=== PATIENT | male | born 1975 | race Caucasian/White ===

== ENCOUNTER 2022-07-31 13:59 | Outpatient (CLI) | payer OTHER ==
--- NOTE | 2022-07-31 16:29 | MRI Report ---
PROCEDURE: LUMBAR SPINE WO INDICATIONS: LOW BACK PAIN TECHNIQUE: Noncontrast sagittal T1 spin echo and T2 fast echo, sagittal STIR, axial T1 and T2 fast spin echo thr ough the lumbar spine. In cases with scoliosis, additional coronal T2 fast spin echo may be performe d. COMPARISON: None. FINDINGS: Image quality: Motion artifact is noted. Alignment and Curvature: There is normal bony alignment. Bone Marrow: Marrow is of normal overall signal. No acute vertebral body compression fractures. Spinal Cord: Conus medullaris terminates at the L1 level. Visualized cord demonstrates normal signa l and size. Paraspinous Soft Tissues: No paravertebral masses. T12-L1: Normal in appearance. L1-L2: Normal in appearance. L2-L3: The disc height and disc signal are well preserved. Mild disc bulge is seen, which is eccen tric to the left, with a left foraminal disc protrusion, as on series 6 image 23. There is mild facet hypertrophy. There is mild to moderate left-sided and no right-sided neuroforaminal narrowing. No si gnificant central canal narrowing is seen. L3-L4: The disc height is well-preserved. There is loss of disc signal seen. Moderate disc bulge i s seen at this level. A superimposed central disc protrusion is seen. Mild to moderate facet hypert rophy can be seen. There is moderate left-sided and no right-sided neuroforaminal narrowing. Mild ce ntral canal narrowing is seen. L4-L5: The disc height is well-preserved. There is loss of disc signal seen. Moderate disc bulge i s seen at this level. A superimposed central disc protrusion is seen. Moderate to prominent facet h ypertrophy can be seen, left worse than right. There is moderate left-sided and zhoc-sl-hmctngma righ t-sided neuroforaminal narrowing. Moderate central canal narrowing is seen, which is exacerbated by epidural lipomatosis. L5-S1: Moderate loss of disc height and signal are seen. Mild disc bulge is seen. A superimposed central disc protrusion is seen. Mild facet hypertrophy is seen. There is at least moderate left-si ded and moderate right-sided neuroforaminal narrowing. At least moderate central canal narrowing is s een, which is largely caused by epidural lipomatosis. IMPRESSION: Multiple levels of lumbar spine degenerative change are seen, which are worst at the L5- S1 level. Epidural lipomatosis noted. Reviewed by: Cy Nina MD on 07/31/2022 3:28 PM [place] Approved by: Cy Nina MD on 07/31/2022 3:28 PM [place] Station ID: [id number]
== END 2022-07-31 14:00 | disposition home or self-care (01) ==
LOC: DI 13:59
DX: M47.816 Spondylosis without myelopathy or radiculopathy, lumbar region (principal); M47.817 Spondylosis without myelopathy or radiculopathy, lumbosacral region; E88.2 Lipomatosis, not elsewhere classified

== ENCOUNTER 2023-01-29 09:36 | Outpatient (CLI) | payer OTHER ==
--- NOTE | 2023-01-29 10:25 | Sleep Patient Instructions ---
Sleep Center Visit Summary - Patient Visit Information Reason for Visit: Initial consultation - Patient Instructions Additional Instructions: You will continue with CPAP therapy with pressure set at 8 cmH2O. A supply prescription will be updated with your DME. I added a new device to your prescription and they should be reaching out to you. We encourage you to continue to try to lose weight. Please follow up with the sleep care office in one month after obtaining reg harris. - Clinic Information Contact: [facility] [address] [place] [address] [email or web address] T: [phone]
--- NOTE | 2023-01-29 10:32 | SLEEP CARE CONSULTATION ---
Information from patient questionnaire entered by Grace Rivera. I have reviewed and concur with the information entered by Grace Rivera. This document represents the service I personally performed and the decisions made by me, Patricia Vogel ARNP. History of Present Illness Service Date and Time: 01/29/2023 0936 Reason for Visit: New patient, sleep apnea on CPAP therapy, Re-establish care Chief Complaint: reports: Unrefreshed sleep, Snoring, Excessive daytime sleepiness, Observed pauses in breathing, Fatigue, Frequent awakenings at night, Other (UPDATE SUPPLIES) Date of Onset: 14YRS Usual bedtime: 915PM Time it takes to fall asleep: CHANGES DAY TO DAY Snores at night: Yes Observed to quit breathing while asleep: Yes Sleeps alone due to snoring: Yes Number of times waking at night: 5-6 Reasons for waking at night: reports: Snoring, Gasping for air, Other (NOISE) Toss, Turn, or Twitch while sleeping: Yes Recalls having dreams: Yes Usually gets out of bed at: 6AM Feels refreshed in the morning: No Morning headache: Yes Sleepy or fatigued during the day: Yes Ever fallen asleep while driving: No Takes day naps: Yes Dreams during day naps: Yes Prior sleep studies: Yes Year and Where: 2015 [facility] Additional HPI information: DORCAS SINGH was previously diagnosed to have moderate, AHI 20, obstructive sleep apnea-hypopnea syndrome and comes in today to establish care for CPAP therapy. His old Blaise machine is giving an error and will not turn on. He has not been able to use it for at least 2 months. - Parasomnia Symptoms Ever been unable to move upon waking from sleep: No Walks in sleep: No Talks in sleep: Yes Ever acted out dreams in sleep: Yes Ever felt weak in the knees when startled or emotional: Yes Bothered by creepy, crawly, restless sensations in legs: No Problems with memory or concentration: Yes CPAP Compliance Data - Data Reviewed with Patient Average duration of nightly device use: unable to get data from malfunctioning machine Compliance data discussion: He has a Respironics REMstar system one machine that is no longer working. He is getting his supplies from a company in [place], [place]. He is using a Blaise Dreamwear nasal cushion, size medium cushion and headgear. Subjective Missed days of use due to: reports: other (machine stopped working about 2 months ago) Patient concerns: denies: aerophagia, mask discomfort, air blowing in eyes, mask leak noise, condensation in mask/hose, nasal congestion, dry mouth, nose, throat, epistaxis Observed to snore while using device: No Current pressure setting perceived as: comfortable On therapy, patient: reports: sleeping better, awakening more refreshed, being more awake and alert during the day, more rested overall. denies: drowsiness wh ile driving Initial [place] Sleepiness Scale score: 20 (01/29/23) Past Medical History Past Medical History: reports: Hypertension, Arrythmia, Anxiety Social History The patient's occupation is a . Patient is and lives in [place]. Have you smoked in the past 12 months: No Cigarettes per day (20/pack): 20 Years of smokin Quit date: 2011 Smoking Pack Years: 6.0 Alcohol use: Yes Alcohol amount and frequency: 1-2 BEERS 2-3 X WEEK Caffeine use: Yes Caffeine amount and frequency: 1PER DAY Family History Family history of sleep disordered breathing: Yes Family Hx Sleep Apnea: Father: Sleep apnea - Treated, Grandparent: Sleep apnea - Untreated Allergies and Home Medications Known drug allergies: No Drug allergies reviewed: Yes Home medication list reviewed: Yes (see updated list in EMR) Review of Systems Weight gain over past 5 years: 35 Cardiovascular: reports: high blood pressure, leg or foot swelling Respiratory: denies: shortness of breath Gastrointestinal: denies: heartburn Neurological: reports: headaches Psychiatric: denies: anxiety, depression Ear/Nose/Throat: reports: wisdom teeth removed. denies: tonsillectomy Endocrine: denies: thyroid disease Musculoskeletal: reports: joint pain, neck pain, back pain, muscle pain or cramping, mobility problems Immunologic: denies: allergies to food or environment Physical Exam Vital signs obtained and entered by: GRACE Perez MA Blood Pressure: 132/80 (LEFT ARM) Cuff size: long Heart Rate: 116 O2 Saturation: 94 Height: 5 ft 11 in Weight: 337 lb 3.2 oz Body Mass Index: 47.0 BMI Classification: Morbidly Obese Neck circumference: 20 Mouth and throat: narrow oropharynx Soft palate: long Hard palate: normal Uvula: normal Uvula visualization: 0% Mallampati Class IV Tongue: normal in size Tonsils: small Neck: normal w/o lymphadenopathy or thyromegaly Heart: irregular rhythm Lungs: clear bilaterally Impression and Plan 1. Obstructive Sleep Apnea-Hypopnea Syndrome, moderate, with unknown treatment compliance and unknown apnea control. On CPAP therapy, the patient has better sleep quality and is more rested overall. Patient states there has been no changes to his pressure since he was last seen in 2016. Patient has Blog[employer]ue that is giving him an error message and not working for the last 2 months. The patients CPAP is over 5 years old and of reasonable use. In addition, it will not turn on or give any data, a sign of malfunction. Thus, the CPAP will be updated. A DWO prescription will be made. Compliance guidelines for new device and follow up discussed. Patient's apnea severity and rationale for treatment to reduce apnea, improve sleep quality and reduce cardiovascular and cerebrovascular events was reviewed. I also reviewed the benefit of consistent device use of CPAP for hypertension and arrhythmia. 2. Obesity, unspecified. Currently patients BMI is 47. Obesity increases the risk of apnea, CPAP pressure requirements and overall health risks especially cardiovascular and diabetes. Thus patient is advised to lose weight. * Continue CPAP pressure at 8 cmH2O as seen in last documented note * Update machine and supplies * Notify me if snoring with mask or feeling that the pressure is too much or too little * Attempt to lose weight * Call this office if any problems using CPAP * Return for follow up a month after obtaining new device, or sooner if concerns arise Counseling Topics: Spare mask, Weight loss health impact Prescriptions: Auto CPAP, Device supplies Visit Type: In Office Time Spent with Patient (minutes): 32 Provider Statement: I spent 100% of the Face to Face Visit with the patient with greater than 50% spent counseling the patient and coordination of care.
[2023-01-29 10:38] VITALS: BP 132/80; O2SAT 94
== END 2023-01-29 09:37 | disposition home or self-care (01) ==
LOC: EDBD 09:36 → SC 09:36
PROVIDERS: ATTEND Nurse Practitioner Family
DX: G47.33 Obstructive sleep apnea (adult) (pediatric) (principal); E66.01 Morbid (severe) obesity due to excess calories; Z68.42 Body mass index [BMI] 45.0-49.9, adult; Z87.891 Personal history of nicotine dependence
CPT/HCPCS: 99203; 99212

== ENCOUNTER 2023-10-19 11:14 | Emergency (ER) | payer OTHER ==
--- NOTE | 2023-10-19 12:57 | ED Physician Documentation ---
History of Present Illness - Stated complaint Stated Complaint: LT ANKLE LAC - Chief complaint Chief Complaint: Ext Problem - History obtained from History obtained from: Patient - History of Present Illness Timing: Today Pain level max: 2 Pain level now: 1 - Additonal information Additional information: Patient is a 48-year-old male who presents to the emergency department with a left ankle laceration from a broken toilet. He had attempted to wrap the wound at home but could not get it to stop bleeding, therefore came in for evaluation. Unknown last tetanus shot. No numbness, tingling or loss of function. PD PAST MEDICAL HISTORY - Past Medical History Past Medical History: Yes Cardiovascular: Hypertension Respiratory: None Neuro: None Endocrine/Autoimmune: None GI: None : None HEENT: None Psych: None Musculoskeletal: None Derm: None - Past Surgical History Past Surgical History: No - Present Medications Home Medications: Ambulatory Orders Medication Instructions Recorded Confirmed Multivitamin See Rx Instructions .ROUTE .COMPLEX 01/29/23 01/29/23 Telmisartan/Hydrochlorothiazid See Rx Instructions .ROUTE .COMPLEX 01/29/23 01/29/23 [Micardis Hct 40-12.5 mg Tablet] carvediloL [Coreg] See Rx Instructions .ROUTE .COMPLEX 01/29/23 01/29/23 cephALEXin [Keflex] 500 mg PO Q6H #28 cap 10/19/23 - Allergies Allergies/Adverse Reactions: Allergies Allergy/AdvReac Type Severity Reaction Status Date / Time No Known Drug Allergies Allergy Verified 10/19/23 11:27 - Social History Does the pt smoke?: No Smoking Status: Never smoker Does the pt drink ETOH?: No Does the pt have substance abuse?: No - Immunizations Immunizations are current?: No - POLST Patient has POLST: No PD ED PE NORMAL - Vitals Vital signs reviewed: Yes - General General: Alert and oriented X 3, No acute distress - Derm Derm: Warm and dry - Neuro Neuro: Alert and oriented X 3 PD ED PE EXPANDED - Extremities REBEKAH LE visual: 1 - laceration (Laceration to the medial aspect of the left ankle, proximal to the actual joint. Neurovascular intact. 4 cm. No tendon injury) Results - Vitals Vitals: Vital Signs - 24 hr 10/19/23 10/19/23 11:21 13:16 Temperature 36.8 C 36.6 C Heart Rate 106 H 88 Respiratory 16 16 Rate Blood Pressure 160/95 H 140/88 H O2 Saturation 96 98 Oxygen O2 Source Room air Procedures - Laceration (location) L ankle Length in cm: 4 Wound type: Curved, Into subcut fat, Clean Neurovascular status: Sensory intact, Motor intact, Vascular intact Tendon involvement: Tendon intact Anesthesia: Lidocaine 1% with epi Wound preparation: Irrigated copiously NS, Wound explored, To the base Skin layer closure: [place] Other: Patient tolerated well, No complications, Neurovascular intact, Dressing applied, Tetanus booster given PD Medical Decision Making - ED course Complexity details: reviewed results, re-evaluated patient, considered differential, d/w patient ED course: 48-year-old male with a left ankle laceration from a toilet. Given that this is a dirty wound, we will place on Keflex for home. Tdap given. Wound repaired with damien. Neurovascular intact. No tendon injury. No evidence of foreign body. Warnings of infection and instructions on wound care given at bedside. Patient counseled regarding signs and symptoms for which I believe and urgent r e-evaluation would be necessary. Patient with good understanding of and agreement to plan and is comfortable going home at this time This document was made in part using voice recognition software. While efforts are made to proofread this document, sound alike and grammatical errors may occur. Departure - Departure Disposition: 01 Home, Self Care Clinical Impression: Laceration of left ankle Qualifiers: Encounter type: initial encounter Qualified Code(s): S91.012A - Laceration without foreign body, left ankle, initial encounter Condition: Good Instructions: ED Laceration Ext Sutr Stap Tape Follow-Up: YASMANY DENSON PA [Primary Care Provider] - Within 1 week Prescriptions: cephALEXin [Keflex] 500 mg PO Q6H #28 cap Comments: Keep the wound clean. The damien should be removed in approximately 10 to 14 days. Please follow-up with your doctor for further care. Please return if you worsen. Take all antibiotics until gone. Forms: PCP List Discharge Date/Time: 10/19/23 13:16
[2023-10-19] MEDS: TETANUS/DIPHTHERIA/PERTUSSIS 0.5 ML SYRINGE IM ONE (13:12)
[2023-10-19 13:27] VITALS: BP 140/88; O2SAT 98
== END 2023-10-19 13:16 | disposition home or self-care (01) ==
LOC: ED 11:14
DX: S91.012A Laceration without foreign body, left ankle, initial encounter (principal); W26.8XXA Contact with other sharp object(s), not elsewhere classified, initial encounter; I10 Essential (primary) hypertension; Z23 Encounter for immunization; Z79.899 Other long term (current) drug therapy
CPT/HCPCS: 12002; 90471; 99283